=== PATIENT | male | born 1995 | race Two or more races ===

== ENCOUNTER 2019-06-18 14:32 | Emergency (ER) | payer BC ==
[~2019-06-18] VITALS: Ht 185.4 cm; Wt 79.4 kg
[~2019-06-18 14:32] MED LIST: ZOFRAN ODT4 MG ORAL
[2019-06-18 14:50] VITALS: BP 100/80
[2019-06-18] MEDS ORDERED: DICYCLOMIN10 MG/5 ML PO (14:57)
[2019-06-18] MEDS ORDERED: ONDANSETRON ODT4 MG BC (14:57)
[2019-06-18] MEDS ORDERED: Lidocaine 2% Visc 15ml soln ORAL ONE (15:00)
[2019-06-18] MEDS ORDERED: Dicyclomine HCl 10mg/5ml oral soln ORAL ONE (15:00)
--- NOTE | 2019-06-18 15:02 | Emergency Room Report ---
History of Present Illness General Chief Complaint: Nausea, Vomiting, and Diarrhea Source: Family Member Present Illness HPI Patient is a 23-year-old male presents after increased vomiting as well as diarrhea. Patient had acute onset of symptoms. He denies any significant abdominal pain. He denies feeling dizzy or lightheaded. He had no recent bad food exposure. He reports having multiple episodes of nonbilious emesis. He began having some watery diarrhea. Denies any fever. Denies any testicular pain. Denies sick contacts. Allergies: Coded Allergies: No Known Allergies (Unverified , 06/10/14) Patient History Reviewed Nursing Documentation: PMH: Agreed; PSxH: Agreed Nursing Documentation-PMH Past Medical History: No Stated History Review of Systems All Other Systems: negative except mentioned in HPI Physical Exam Vital Signs Date Time Temp Pulse Resp B/P (MAP) Pulse Ox O2 Delivery O2 Flow Rate FiO2 06/18/19 14:37 97.7 102 20 100/80 (87) 98 Room Air Sp02 EP Interpretation: reviewed, normal General Appearance: normal inspection, well appearing, no apparent distress, alert, GCS 15 Head: atraumatic ENT: normal ENT inspection, hearing grossly normal, normal voice Neck: normal inspection, full range of motion, supple, no bony tend Respiratory: normal inspection, lungs clear, normal breath sounds, no respiratory distress, no retraction, no wheezing Cardiovascular #1: regular rate, rhythm, no edema Gastrointestinal: normal inspection, normal bowel sounds, non tender, soft, no guarding, no hernia Genitourinary: no CVA tenderness Musculoskeletal: normal inspection, back normal, normal range of motion Neurologic: alert, motor strength/tone normal, 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 Differential diagnosis include was not limited to appendicitis, enteritis, gastroenteritis among others. Patient has a benign exam. He does not appear to have any evidence of any systemic toxicity. He does not appear to be dehydrated symptomatically. He was given Zofran as well as GI cocktail in the emergency department. Appears stable for discharge. Patient was given prescription for Bentyl as well as for Zofran. He was advised to return if worse. He is advised to continue oral rehydration. Last Vital Signs Date Time Temp Pulse Resp B/P (MAP) Pulse Ox O2 Delivery O2 Flow Rate FiO2 06/18/19 14:37 97.7 102 20 100/80 (87) 98 Room Air Status: improved Disposition: HOME, SELF-CARE Condition: Stable Scripts Dicyclomine HCl (Dicyclomine HCl) 10 Mg/5 Ml Solution 10 MG PO NEEDED, #120 ML Prov: Marek Vazquez MD 06/18/19 Ondansetron Odt* (ZOFRAN ODT*) 4 Mg Tab.rapdis 4 MG BC EVERY 8 HOURS PRN for Nausea & Vomiting, #10 TAB 0 Refills Prov: Marek Vazquez MD 06/18/19 Departure Forms: Return to Work Return to Work in (Days): 3 Patient Instructions: Viral Gastroenteritis, Adult Marek Vazquez MD Jun 18, 2019 15:02
[2019-06-18 15:17] VITALS: BP 105/77
== END 2019-06-18 15:18 | disposition home or self-care (01) ==
LOC: EMR 15:00
DX: K52.9 Noninfective gastroenteritis and colitis, unspecified (principal)
CPT/HCPCS: 99283